=== PATIENT | female | born 1950 | race Caucasian/White ===

== ENCOUNTER → 2017-11-04 | Outpatient (CLI) | payer MEDICARE, OTHER ==
[~2017-11-04] MED LIST: CONESTTC; CYAN1000; CYCL10 PO; NAPR500 PO; VITAMIN D-32000 UNIT; [UNRECOGNIZED DRUG - REMARK]
[2017-11-06 12:54] LABS: HPV Genotype 16 Not Detected (NOTDET); HPV Genotype 18 Not Detected (NOTDET)
[2017-11-17 14:25] LABS: HPV High Risk Other Not Detected (NOTDET)
[2017-11-18 07:14] LABS: Source CERVIX
== END | disposition home or self-care (01) ==
LOC: OLS 16:10
PROVIDERS: Obstetrics & Gynecology Gynecology
DX: Z91.89 Other specified personal risk factors, not elsewhere classified (principal); Z78.0 Asymptomatic menopausal state
CPT/HCPCS: 87624; G0123

== ENCOUNTER 2018-09-26 09:30 | Emergency (ER) | payer MEDICARE, OTHER ==
[~2018-09-26] VITALS: Ht 154.9 cm; Wt 78.5 kg
[2018-09-26 10:23] LABS: BASOPHILS ABSOLUTE AUTO 0.01 K/mm3 (0.00-0.23); BASOPHILS PERCENT AUTO 0 % (0-2); EOSINOPHILS ABSOLUTE AUTO 0.06 K/mm3 (0.00-0.68); EOSINOPHILS PERCENT AUTO 1 % (0-6); Hematocrit 41.6 % (33.0-51.0); Hemoglobin 13.7 g/dL (11.5-16.0); IMMATURE GRAN ABSOLUTE AUTO 0.02 K/mm3 (0.00-0.10); IMMATURE GRAN PERCENT AUTO 0 % (0-1); LYMPHOCYTES ABSOLUTE AUTO 1.93 K/mm3 (0.84-5.20); LYMPHOCYTES PERCENT AUTO 31 % (21-46); MONOCYTES ABSOLUTE AUTO 0.92 K/mm3 (0.16-1.47); MONOCYTES PERCENT AUTO 15 % (4-13); Mean Corpuscular HGB 30.4 pg (26.0-34.0); Mean Corpuscular HGB Conc 32.9 g/dL (31.5-36.5); Mean Corpuscular Volume 92 fL (80-100); Mean Platelet Volume 10.3 fL (9.1-12.4); NEUTROPHILS ABSOLUTE AUTO 3.39 K/mm3 (1.96-9.15); NEUTROPHILS PERCENT AUTO 54 % (41-73); Platelet Count 212 K/mm3 (150-400); RDW Coefficient Variation 12.5 % (11.7-14.2); RDW Standard Deviation 42.2 fL (35.1-46.3); Red Blood Cell Count 4.51 M/mm3 (3.80-5.20); White Blood Cell Count 6.33 K/mm3 (4.00-11.30)
[2018-09-26 10:42] LABS: Alanine Aminotransfer (ALT/SGP 17 U/L (12-78); Albumin, Blood 3.5 g/dL (3.4-5.0); Albumin/Globulin Ratio 0.9 (0.8-1.8); Alk Phos 88 U/L (50-136); Anion Gap 7 mmol/L (6-16); Aspartate Aminotrans (AST/SGOT 30 U/L (12-37); Bilirubin, Total 1.2 mg/dL (0.1-1.0); Blood Urea Nitrogen 13 mg/dL (8-24); Bun/Creatinine Ratio 17.5 (12.0-20.0); CO2, Blood 25 mmol/L (21-32); Chloride, Blood 106 mmol/L (98-108); Creatinine, Blood 0.74 mg/dL (0.40-1.00); Globulin, Blood 3.9 g/dL (2.2-4.0); Glomerular Filtration Rate >60 (60-); Glucose, Blood 102 mg/dL (70-99); Potassium, Blood 4.9 mmol/L (3.5-5.5); Sodium, Blood 138 mmol/L (136-145); Total Protein, Blood 7.4 g/dL (6.4-8.2); Troponin I <0.015 ng/mL (0.000-0.040)
[2018-09-26] MEDS ORDERED: Cyclobenzaprine5 MG PO (13:01)
[2018-09-26] MEDS ORDERED: IBUP800 PO (13:01)
== END 2018-09-26 13:33 | disposition home or self-care (01) ==
LOC: ER 09:30
PROVIDERS: Emergency Medicine
DX: R07.9 Chest pain, unspecified (principal); Z87.891 Personal history of nicotine dependence
CPT/HCPCS: 36415; 71046; 80053; 83880; 84484; 85025; 85379; 93005; 93010; 96374; 99285-25; J2270

== ENCOUNTER → 2019-06-15 | Outpatient (CLI) | payer MEDICARE, OTHER ==
[~2019-06-15] MED LIST changes: +Cyclobenzaprine5 MG PO; +IBUP800 PO
[2019-06-17 15:07] LABS: HPV 16 Negative (Negative); HPV 18 Negative (Negative); HPV OTHER HR TYPES Negative (Negative)
== END | disposition home or self-care (01) ==
LOC: LAB SHORT 18:46 → LAB 18:46
PROVIDERS: Obstetrics & Gynecology Gynecology
DX: Z91.89 Other specified personal risk factors, not elsewhere classified (principal)
CPT/HCPCS: 87624; G0123

== ENCOUNTER 2024-03-13 08:45 | Emergency (ER) | payer MEDICARE, OTHER ==
[~2024-03-13] VITALS: Ht 160 cm; Wt 74.8 kg
[~2024-03-13 08:45] MED LIST changes: +GABA100; +ZINC15
[2024-03-13] MEDS ORDERED: Aspirin 325 MG Tab PO ONE (09:10)
[2024-03-13 09:15] LABS: BASOPHILS ABSOLUTE AUTO 0.01 K/mm3 (0.00-0.23); BASOPHILS PERCENT AUTO 0 % (0-2); EOSINOPHILS ABSOLUTE AUTO 0.02 K/mm3 (0.00-0.68); EOSINOPHILS PERCENT AUTO 0 % (0-6); Hematocrit 37.4 % (33.0-51.0); Hemoglobin 12.5 g/dL (11.5-16.0); IMMATURE GRAN ABSOLUTE AUTO 0.05 K/mm3 (0.00-0.10); IMMATURE GRAN PERCENT AUTO 1 % (0-1); LYMPHOCYTES ABSOLUTE AUTO 1.34 K/mm3 (0.84-5.20); LYMPHOCYTES PERCENT AUTO 16 % (21-46); MONOCYTES ABSOLUTE AUTO 1.33 K/mm3 (0.16-1.47); MONOCYTES PERCENT AUTO 15 % (4-13); Mean Corpuscular HGB 30.6 pg (26.0-34.0); Mean Corpuscular HGB Conc 33.4 g/dL (31.5-36.5); Mean Corpuscular Volume 92 fL (80-100); Mean Platelet Volume 10.2 fL (9.1-12.4); NEUTROPHILS ABSOLUTE AUTO 5.91 K/mm3 (1.96-9.15); NEUTROPHILS PERCENT AUTO 68 % (41-73); Platelet Count 192 K/mm3 (150-400); RDW Standard Deviation 44.2 fL (35.1-46.3); Red Blood Cell Count 4.08 M/mm3 (3.80-5.20); White Blood Cell Count 8.66 K/mm3 (4.00-11.30)
[2024-03-13 09:37] LABS: Albumin, Blood 3.5 g/dL (3.4-5.0); Albumin/Globulin Ratio 0.8 (0.8-1.8); Bilirubin, Total 1.7 mg/dL (0.1-1.0); Bun/Creatinine Ratio 17.3 (12.0-20.0); Calcium, Blood 8.9 mg/dL (8.5-10.1); Creatinine, Blood 0.69 mg/dL (0.40-1.00); Globulin, Blood 4.4 g/dL (2.2-4.0); Potassium, Blood 3.5 mmol/L (3.5-5.5); Total Protein, Blood 7.9 g/dL (6.4-8.2)
[2024-03-13] MEDS ORDERED: Lidocaine 4% 1 Patch TOP ONE (10:40)
[2024-03-13] MEDS ORDERED: Ketorolac Tromethamine 30mg Vial IV ONE (12:10)
[2024-03-13 12:14] VITALS: BP 137/72
[2024-03-13] MEDS ORDERED: LIDO700A20 TOP (12:55)
== END 2024-03-13 15:14 | disposition home or self-care (01) ==
LOC: ER 08:45
PROVIDERS: Physician Assistant
DX: R07.2 Precordial pain (principal); Z87.891 Personal history of nicotine dependence; Z79.818 Long term (current) use of other agents affecting estrogen receptors and estrogen levels; Z79.899 Other long term (current) drug therapy
CPT/HCPCS: 71046; 71260; 80053; 83690; 84484; 85025; 85379; 93005; 93010; 96374-59; 99285-25; A9270; J1885; Q9967

== ENCOUNTER 2024-06-01 07:03 | Day surgery (SDC) | payer MEDICARE, OTHER ==
[2024-06-01] VITALS (13 sets, daily range): BP systolic 106–140; BP diastolic 59–86
[~2024-06-01] VITALS: Ht 157.5 cm; Wt 77.7 kg
[~2024-06-01 07:03] MED LIST changes: +ALEN70 PO; +LIDO700A20 TOP; +Lactated Ringer's 1,000 ML IV SCH; +OMEP20ER PO
--- NOTE | 2024-06-01 08:07 | NUR ---
Ambulatory in Day Surgery. History, Chart, Medications and Allergies reviewed before start of procedure. Lungs clear T/O to Auscultation. Patient confirms NPO status and agrees with scheduled surgery. Pre-Op teaching done. Pt verbalizes understanding. Patient States Post-Procedure ride home has been arranged.
[2024-06-01] MEDS ORDERED: propofoL 20 ML IV ONE (08:16)
--- NOTE | 2024-06-01 08:48 | NUR ---
06/01/24 0848 Rita Cerna ENDO 1 @ 0818. CONFIRMED AND REVIEWED H&P, MEDCICATIONS, ALLERGIES, MEDICAL HISTORY, RESPIRATORY HISTORY, VITAL SIGNS, 3-LEAD EKG, CONSENTS, AND PHYSICIAN ORDERS. PATIENT CONFIRMS NPO STATUS AND AGREES WITH SCHEDULED PROCEDURE. MONITOR INTACT WITH CONTINUOUS PULSE OXIMETRY, CAPNOGRAPHY, 3-LEAD EKG, INTERMITTENT BP. SUPPLEMENTAL O2 TO BE TITRATED THROUGHOUT PROCEDURE TO MAINTAIN O2 SATURATION ABOVE 90%. PATIENT DETERMINED TO BE ASA APPROPRIATE FOR PROPOFOL SEDATION PRIOR TO START OF PROCEDURE BY .MALLAMPATI CLASS 2 AIRWAY: COMPLETE VISUALIZATION OF THE UVULA.
--- NOTE | 2024-06-01 09:05 | NUR ---
Discharge instructions reviewed with patient. Patient verbalizes understanding. Copy given to patient to take home. Patient States Post-Procedure ride home has been arranged. Discharged via wheelchair to private car for ride home.
== END 2024-06-01 09:05 | disposition home or self-care (01) ==
LOC: ORSCMMR 07:03 → ORD 08:00 → ORSCMMR 08:00
PROVIDERS: Internal Medicine Gastroenterology
PROC: 0DBH8ZX Excision of Cecum, Via Natural or Artificial Opening Endoscopic, Diagnostic (ICD-10-PCS; principal; 2024-06-01 08:00)
PROC: 0DBM8ZX Excision of Descending Colon, Via Natural or Artificial Opening Endoscopic, Diagnostic (ICD-10-PCS; principal; 2024-06-01 08:00)
DX: K63.5 Polyp of colon (principal); Z86.0101 Personal history of adenomatous and serrated colon polyps; D12.4 Benign neoplasm of descending colon; Z87.891 Personal history of nicotine dependence; R13.12 Dysphagia, oropharyngeal phase; K21.9 Gastro-esophageal reflux disease without esophagitis; M81.0 Age-related osteoporosis without current pathological fracture; Z79.899 Other long term (current) drug therapy
CPT/HCPCS: 88305; J2704; J7120

== ENCOUNTER → 2024-09-22 | Outpatient (CLI) | payer MEDICARE ==
[~2024-09-22] MED LIST changes: -Lactated Ringer's 1,000 ML IV SCH
[2024-09-22 13:20] LABS: BASOPHILS ABSOLUTE AUTO 0.01 K/mm3 (0.00-0.23); BASOPHILS PERCENT AUTO 0 % (0-2); EOSINOPHILS ABSOLUTE AUTO 0.02 K/mm3 (0.00-0.68); EOSINOPHILS PERCENT AUTO 0 % (0-6); Hematocrit 36.9 % (33.0-51.0); Hemoglobin 12.5 g/dL (11.5-16.0); IMMATURE GRAN ABSOLUTE AUTO 0.02 K/mm3 (0.00-0.10); IMMATURE GRAN PERCENT AUTO 0 % (0-1); LYMPHOCYTES ABSOLUTE AUTO 1.08 K/mm3 (0.84-5.20); LYMPHOCYTES PERCENT AUTO 17 % (21-46); MONOCYTES ABSOLUTE AUTO 0.95 K/mm3 (0.16-1.47); MONOCYTES PERCENT AUTO 15 % (4-13); Mean Corpuscular HGB Conc 33.9 g/dL (31.5-36.5); Mean Corpuscular Volume 92 fL (80-100); Mean Platelet Volume 9.8 fL (9.1-12.4); NEUTROPHILS ABSOLUTE AUTO 4.16 K/mm3 (1.96-9.15); NEUTROPHILS PERCENT AUTO 67 % (41-73); Platelet Count 195 K/mm3 (150-400); RDW Coefficient Variation 12.2 % (11.7-14.2); Red Blood Cell Count 4.03 M/mm3 (3.80-5.20); White Blood Cell Count 6.24 K/mm3 (4.00-11.30)
[2024-09-22 13:35] LABS: Albumin, Blood 3.3 g/dL (3.4-5.0); Albumin/Globulin Ratio 0.8 (0.8-1.8); Bilirubin, Total 1.4 mg/dL (0.1-1.0); Bun/Creatinine Ratio 13.2 (12.0-20.0); Creatinine, Blood 0.91 mg/dL (0.40-1.00); Globulin, Blood 4.3 g/dL (2.2-4.0); Total Protein, Blood 7.6 g/dL (6.4-8.2)
== END | disposition home or self-care (01) ==
LOC: LAB SHORT 13:16
PROVIDERS: Physician Assistant
DX: R07.9 Chest pain, unspecified (principal)
CPT/HCPCS: 80053; 84484; 85025